=== PATIENT | female | born 1950 | race African-American/Black ===

== ENCOUNTER → 2016-11-19 | Outpatient (CLI) | payer OTHER ==
[~2016-11-19] MED LIST: FERR200T PO; HYDR25TA5 PO; LISI40TA PO; METO25TA3 PO
--- NOTE | 2016-11-19 19:12 | EKG ---
Date Performed: 11/19/2016 Time Performed: 08:18:32 PTAGE: 66 years EKG: Sinus rhythm . Short CA interval Possible left atrial abnormality Poor R wave progression - probable normal varian t Borderline ECG PREVIOUS TRACING : 03/14/2010 11.03 The atrial abnormality is new since prior tracing. DOCTOR: Alexander Chilel Interpretating Date/Time 11/19/2016 19:10:27
--- NOTE | 2016-11-20 16:48 | HM ---
Date Performed: 11/20/2016 Time Performed: 07:32:00 HOOKUP DATE: 11/20/16 07:32:00 AM Wed ANALYSIS START TIME: 11/20/2016 7:37:00 AM ANALYSIS END TIME: 11/21/2016 7:10:25 AM PATIENT AGE: 66 PATIENT HEIGHT PATIENT WEIGHT DRUG LIST: OUTPATIENT PATIENT DIAGNOSIS: FAST HEART BEAT TEST NARRATIVE: The patient's average heart rate was 86 BPM. Heart rates greater than 120 B PM were noted 1% of the time. No episodes of bradycardia were noted. No pauses exceeding 2.0 sec onds were noted. No ventricular ectopics were noted. No supraventricular ectopics were noted. Multiple episodes of ST depression (defined as -1.0 mm or more) were noted in channel 1. The m aximum depression of -3.1 mm occurred at 11:11:32 AM Wed. Multiple episodes of ST depression (define d as -1.0 mm or more) were noted in channel 2. The maximum depression of -3.3 mm occurred at 09:28: 38 AM Wed. Multiple episodes of ST depression (defined as -1.0 mm or more) were noted in channel 3. The maximum depression of -2.8 mm occurred at 06:24:33 AM Izzy. TEST INTERPRETATION: Sinus rhythm Sinus tachycardia Signed by : Mirian Hill
== END ==
LOC: HCAV 08:06
PROVIDERS: ATTEND Nurse Practitioner Family
DX: R00.0 Tachycardia, unspecified (principal)
CPT/HCPCS: 93005; 93225; 93226

== ENCOUNTER → 2016-11-20 | Outpatient (CLI) | payer OTHER ==
[2016-11-20 09:41] LABS: HEMATOCRIT 34.5 % (35.0-46.0); MEAN CELL VOLUME 83.8 FL (80.0-100.0); MEAN CORPUSCULAR HEMOGLOBIN 27.4 PG (27.0-34.0); MEAN CORPUSCULAR HGB CONC 32.7 % (32.0-36.0); PLATELET COUNT 393 TH/MM3 (150-450); RED BLOOD COUNT 4.12 MIL/MM3 (4.00-5.30); RED CELL DISTRIBUTION WIDTH 18.5 % (11.6-17.2); REVIEW FLAG FINAL; WHITE BLOOD COUNT 4.8 TH/MM3 (4.0-11.0)
[2016-11-20 09:51] LABS: ANION GAP 9 MEQ/L (5-15); AST (GOT) 29 U/L (15-37); BLOOD UREA NITROGEN 8 MG/DL (7-18); CHLORIDE 99 MEQ/L (98-107); GLOMERULAR FILTRATION RATE 122 ML/MIN (>89); GLUCOSE,FASTING 93 MG/DL (74-99); POTASSIUM 3.6 MEQ/L (3.5-5.1); SODIUM (NA) 134 MEQ/L (136-145)
[2016-11-20 10:05] LABS: ALKALINE PHOSPHATASE 74 U/L (45-117); ALT (GPT) 17 U/L (10-53); HDL CHOLESTEROL 114.8 MG/DL (40.0-60.0); LDL CHOLESTEROL 80 MG/DL (0-99); TOTAL BILIRUBIN ADULT 0.5 MG/DL (0.2-1.0)
== END ==
LOC: CLAB 08:54
PROVIDERS: ATTEND Nurse Practitioner Family
DX: I10 Essential (primary) hypertension (principal); R00.0 Tachycardia, unspecified; E78.5 Hyperlipidemia, unspecified
CPT/HCPCS: 36415; 80053; 80061; 84443; 85027